=== PATIENT | male | born 1975 | race Caucasian/White ===

== ENCOUNTER 2021-06-27 02:31 | Emergency (ER) | payer SELFPAY ==
[2021-06-27 02:35] VITALS: BP 121/81; PULSE 121; RESP 16; TEMP 36.1; O2SAT 97; BMI 26.6
--- NOTE | 2021-06-27 02:52 | W.ED.SKABFB ---
HPI - Skin/Abscess/Foreign Bdy General: Chief complaint: Skin/Abscess/Foreign Body Stated complaint: Enternal Sist that Burst on Bottom Time Seen by Provider: 06/27/21 02:35 Source: patient Mode of arrival: ambulatory Limitations: no limitations History of Present Illness: HPI narrative: 46-year-old male states that having rectal pain for roughly a week states he originally thought he had an internal hemorrhoid but states he went to the bathroom yesterday felt a pop and had a lot of purulent material believes that he has not rectal abscess. He states he feels like it is on the inside he does not notice anything on the outside. He states he felt improved after the drainage but states that today his pain got much worse and he is able to have a bowel movement and is having difficulty with urination. Rates his pain a 6 out of 10. Denies any vomiting. Associated symptoms: Deny chills or fever(s) Review of Systems Const: Denies: fever(s), chills, body aches or change in appetite Eyes: Denies: blurry vision or eye discomfort ENMT: Denies: throat pain or dental pain Card: Denies: chest pain Resp: Denies: dyspnea GI: Reports: rectal pain : Denies: dysuria Musc: Denies: neck pain or back pain Skin/Breast: Denies: rash Neuro: Denies: headache(s) Psych: Denies: depression Watson/Lymph: Denies: easy bruising All/Imm: Denies: urticaria Physical Exam Const: COMMON NORMALS: no acute distress, patient oriented x3 and healthy appearing HENMT: COMMON NORMALS: normocephalic and atraumatic HEAD & SCALP: normocephalic and atraumatic Eye: COMMON NORMALS: Equal, round and reactive pupils present and EOMs intact bilaterally PUPIL: Yes Equal, round and reactive pupils present Neck/C-Spine: COMMON NORMALS: full ROM and supple Chest: COMMONS NORMALS: normal inspection of the chest and normal palpation of entire chest wall Resp: COMMON NORMALS: normal respiratory effort, No retractions, No use of accessory muscles and clear to auscultation bilaterally AUSCULTATION: clear to auscultation bilaterally Cardio: COMMON NORMALS: regular rate, regular rhythm and No murmurs present (Cardio) RATE: regular rate RHYTHM: regular rhythm GI: COMMON NORMALS: Normal to inspection, nondistended, normoactive bowel sounds present, Soft to palpation, non-tender and no masses PALPATION: Yes Soft to palpation OTHER: No obvious rectal abscess or hemorrhoid Extremity: COMMON NORMALS: normal to inspection and full ROM Neuro: COMMON NORMALS: patient oriented x3, moves all extremities and no focal motor deficits Psych: COMMON NORMALS: mental status grossly normal, Normal thought process present and cooperative THOUGHT PROCESS: Normal thought process present Skin: COMMON NORMALS: no rashes or lesions noted and no wounds GENERAL SKIN EXAM: no rashes or lesions noted Course Vital Signs: Vital signs: Vital Signs Temperature 96.9 F L 06/27/21 02:35 Pulse Rate 121 H 06/27/21 02:35 Respiratory Rate 22 H 06/27/21 03:12 Blood Pressure 121/81 06/27/21 02:35 Pulse Oximetry 97 06/27/21 02:35 MDM - Skin/Abscess/Foreign Bdy MDM Narrative: Medical decision making narrative: Patient presents here with a very small perianal abscess I believe is likely is draining on its own. On exam I do not see any area to be drained and spoke to surgeon Dr. Rm patient is not febrile has a normal white count and will have him placed on oral antibiotics do sitz bath and follow-up with Dr. Narayanan as outpatient in 2 to 3 days. Hospital with the findings of the renal mass with patient instructed him to follow-up as well. I did tell importance that this could be cancer and he needs to follow-up with soon as possible. And for his ED worsening pain or fever draining he is return immediately. Lab Data: Labs: Lab Results 06/27/21 06/27/21 06/27/21 03:20 03:20 03:50 WBC 11.3 10^3/uL H 10 ^3/uL (4.0-10.0) RBC 4.43 10^6/uL 10^6 /uL (4.1-5.3) Hgb 13.8 g/dL g/dL (11.7-16.6) Hct 41.9 % L % (42.0-52.0) MCV 94.6 fl H fl (80-94) MCH 31.2 pg pg (28.0-34.0) MCHC 32.9 g/dL g/dL (30.0-36.0) RDW 12.9 % % (12.1-15.1) Plt Count 244 10^3/cmm 10^3 /cmm (130-400) MPV 9.4 fL fL (7.4-10.4) Neut % (Auto) 73.8 % % Lymph % (Auto) 16.7 % % [place] % (Auto) 8.4 % % Eos % (Auto) 0.3 % % Baso % (Auto) 0.5 % % Neut # (Auto) 8.31 10^3/uL H 10 ^3/uL (1.8-7.7) Lymph # (Auto) 1.9 10^3/uL 10^3/ uL (0.8-4.8) [place] # (Auto) 0.9 10^3/uL 10^3/ uL (0.2-0.9) Eos # (Auto) 0.0 10^3/uL 10^3/ uL (0.0-0.8) Baso # (Auto) 0.1 10^3/uL 10^3/ uL (0.0-0.1) Nucleated RBC % (a uto) 0 % % Nucleated RBCs # 0.0 /100WBC /100W BC Sodium 135 mmol/L L mmol /L (136-145) Potassium 4.0 mmol/L mmol/L (3.5-5.1) Chloride 102 mmol/L mmol/L (98-107) Carbon Dioxide 24 mmol/L mmol/L (22-29) Anion Gap 13.0 (5-19) BUN 13 mg/dL mg/dL (6-20) Creatinine 0.9 mg/dL mg/dL (0.7-1.2) GFR Calculation 90.4 mL/min mL/mi n (90-130) Glucose 111 mg/dL mg/dL (65-115) Calculated Osmolal ity 281 mOsm/kg L mOs m/kg (285-295) Calcium 9.0 mg/dL mg/dL (8.5-10.5) Total Bilirubin 0.2 mg/dL mg/dL (0.15-1.2) AST 11 U/L U/L (0-40) ALT 18 U/L U/L (0-41) Alkaline Phosphata se 57 IU/L IU/L (40-130) Total Protein 6.3 g/dL L g/dL (6.6-8.7) Albumin 3.9 g/dL g/dL (3.5-5.2) Globulin 2.4 g/dL g/dL (1.3-4.6) Lipase 22 U/L U/L (13-60) Urine Color Yellow (Yellow) Urine Appearance Clear (CLEAR) Urine pH 7 (5-7) Ur Specific Gravit y 1.005 (1.005-1.030) Urine Protein Neg (Negative) Urine Glucose (UA) Norm (Normal) Urine Ketones Negative (Negative) Urine Blood 2+ H (Negative) Urine Nitrate Negative (Negative) Urine Bilirubin Neg (Negative) Urine Urobilinogen 1 mg/dL H mg/dL (Negative) Ur Leukocyte Libby ase Negative (Negative) Urine RBC 0-4 /hpf H /hpf (0-2) Urine WBC 0-4 /hpf H /hpf (0-5) Ur Squamous Epith Cells 0-4 /hpf H /hpf (0-5) Amorphous Sediment Not Reportable Urine Bacteria Trace /hpf /hpf (NONE) Imaging Data^: CT Abd/Pel: Attestation: I personally reviewed and interpreted this imaging study as follows: Radiologist's impression: [address] [address] [address] Scan Report Signed with Addenda Patient: Vince Lugo Unit #: [id number] : 1975 Age/Sex: 46 / M ADM Date: 06/27/21 Loc: ER Room/Bed: Attending Dr: Ordering Provider/Ordering MD: Denita Valle MD Date of Service: 06/27/21 Procedure(s): CT abdomen pelvis w con* [id number] Accession Number(s): [id number] Report Number: [id number]/CT abdomen pelvis w con* [id number] This report contains findings that may be critical to patient care. I discussed the critical exam findings by phone with DENITA Crook at 4:21 AM CDT, 06/27/2021. Specifically, we discussed the suspected perianal abscess, as well as the possible renal mass/neoplasm, and nonspecific liver findings. The findings were acknowledged and understood. He was also instructed to review the provided written report for complete details, and description of other non-critical findings. Radiation Dose CTDIVOL = (mGy): DLP = 1990.54 (mGy-cm) Addendum Dictated By: Miguel Pinon MD Addendum Signed By: Miguel Pinon MD Signed Date/Time: 06/27/21 0 427 Addendum Cosigned By: PROCEDURE INFORMATION: Exam: CT Abdomen And Pelvis With Contrast Exam date and time: 06/27/2021 2:54 AM Age: 46 years old Clinical indication: Pain; Other: Shabana rectal abscess; Additional info: R/O shabana rectal abscess TECHNIQUE: Imaging protocol: Computed tomography of the abdomen and pelvis with contrast. Radiation optimization: All CT scans at this facility use at least one of these dose optimization techniques: automated exposure control; mA and/or kV adjustment per patient size (includes targeted exams where dose is matched to clinical indication); or iterative reconstruction. Contrast material: OMNI 300; Contrast volume: 95 ml; Contrast route: INTRAVENOUS (IV); COMPARISON: No relevant prior studies available. RADIATION DOSE METRICS: Total DLP (mGy-cm): 1990.54 FINDINGS: Lungs: The lung bases are clear. Diaphragm: Small hiatal hernia. There may be some mucosal/wall thickening involving the lower esophagus. This is nonspecific, but could represent evidence for esophagitis. Please correlate clinically. Liver: There is fatty infiltration of the liver. There is a very small 3-4 mm low attenuation area in the left lobe of the liver. The appearance is nonspecific, but statistically this most likely represents a small cyst or cavernous hemangioma. Two subtle focal areas of enhancement or relative high attenuation are seen in the right lobe of the liver. 15 mm lesion in the lower right lobe,(axial image number 32, series 2), 10 mm lesion in the upper right lobe,(axial image number 10, series 2). This appearance is nonspecific. These could represent cavernous hemangiomas or areas of focal fatty sparing. Other neoplasm, including metastatic disease is not excluded. If there is clinical concern for other liver mass such as metastatic disease, MRI could be more specific/sensitive. Gallbladder and bile ducts: No definite gallbladder abnormality by CT. No biliary tree dilation. Pancreas: Unremarkable. Spleen: Unremarkable. Adrenal glands: Unremarkable. Kidneys and ureters: Subtle 15 mm fairly well-defined area of poor/decreased enhancement in the lower pole/tip of the left kidney. No adjacent inflammatory changes or perinephric fluid. The etiology is nonspecific, but this does not appear to represent a cyst. A focal area of pyelonephritis could have this appearance, although this could represent a small solid mass/neoplasm, such as renal cell carcinoma. A much smaller 5 mm similar appearing area of low attenuation is seen in the medial lower left kidney. Eventual comparison with any available prior exams will be helpful. Further evaluation/characterization with MRI will be useful to help exclude possible neoplasm/malignancy. No hydronephrosis of either kidney. No visible ureteral calculus. Stomach and bowel: No significant bowel distention. There are no CT findings to strongly suggest diverticulitis. Appendix: The appendix is visualized and appears normal. Intraperitoneal space: No free intraperitoneal air, or ascites. Vasculature: No evidence for abdominal aortic aneurysm. Lymph nodes: A few borderline prominent retroperitoneal/periaortic lymph nodes, a nonspecific appearance. Largest on the left, superior to the left renal vein, measures 14 x 8 mm. The appearance is nonspecific. Followup may be useful to exclude progression, especially if there is concern for metastatic disease. Urinary bladder: No visible calculus in the urinary bladder. No significant bladder wall thickening. Reproductive: Essentially unremarkable for age. Bones/joints: Moderate degenerative disc changes in the lower lumbar spine. The bone removed Soft tissues: Very small 20 x 10 x 15 mm fluid and gas collection in the left perianal region, suspicious for a small abscess, (axial images # [id number], series 2). Please correlate clinically. CT/CT abdomen pelvis w con* [id number] IMPRESSION: 1. 20 x 10 x 15 mm fluid and gas collection in the left perianal region, suspicious for a small abscess. 2. Nonspecific 15 mm lesion in the lower pole of the left kidney, see above details/discussion/recommendation. Small renal cell carcinoma or other neoplasm is not excluded. 3. Nonspecific liver lesions, see above discussion. 4. Borderline prominent retroperitoneal/periaortic lymph nodes, see above. 5. Small hiatal hernia. Possibly some thickening of the lower esophagus, see above discussion. 6. No evidence for appendicitis or diverticulitis. 7. No free air or bowel distention. 8. Other findings discussed above. COMMENTS: Consistent with the [employer]'s Incidental Findings Committee white paper (J Am Gilbert Radiol 2018): Any incidental renal lesion less than 1 cm or classified as too small to characterize, or any incidental cystic renal lesion characterized as simple-appearing, is likely benign. No follow-up imaging is recommended for these lesions per consensus recommendations based on imaging criteria. Radiation Dose CTDIVOL = (mGy): DLP = 1991.54 (mGy-cm) Dictated By: Miguel Pinon MD Signed By: Miguel Pinon MD Signed Date/Time: 06/27/21 0421 DD/ [id number] Discharge Plan Discharge Patient Disposition: Home Clinical Impression: Abscess, perianal, Left renal mass Condition: Stable Prescriptions: New hydrocodone-acetaminophen 5-325 mg tablet 1 tab PO Q6H PRN (Reason: pain) Qty: 14 RF: 0 Bactrim DS 800-160 mg tablet 1 tab PO BID 10 Days Qty: 20 RF: 0 ondansetron 4 mg tablet,disintegrating 4 mg PO Q6H PRN (Reason: nausea and vomiting) Qty: 14 RF: 0 Discharge Orders: Discharge ED (Routine); Ordered 06/27/21 Ordered By: Denita Valle Discharge Diet: Advance as tolerated Discharge Activity: Resume usual activity Patient Instructions: Rectal Abscess (ED), Opioid Safety Coding Level of Care Code ED Editor Book for Chg Fwd Exam Comprehensive
[2021-06-27 03:12] VITALS: RESP 22
[2021-06-27] MEDS: ondansetron 2 mg/ML SDV 2 mL 4 MG IVP (03:12)
[2021-06-27] MEDS: morphine 4 mg/mL SDV 1 mL IVP (03:12)
[2021-06-27] MEDS: sodium chloride 0.9% 1,000 ML 999 ML IV (03:12)
[2021-06-27 03:27] LABS: Basophils # 0.1 10^3/uL (0.0-0.1); Basophils % 0.5 %; Eosinophils % 0.3 %; Hematocrit 41.9 % (42.0-52.0); Hemoglobin 13.8 g/dL (11.7-16.6); Lymphocytes # 1.9 10^3/uL (0.8-4.8); Lymphocytes % 16.7 %; Mean Corpuscular HGB Conc 32.9 g/dL (30.0-36.0); Mean Corpuscular Hemoglobin 31.2 pg (28.0-34.0); Mean Corpuscular Volume 94.6 fl (80-94); Mean Platelet Volume 9.4 fL (7.4-10.4); Monocytes # 0.9 10^3/uL (0.2-0.9); Monocytes % 8.4 %; Neutrophils # 8.31 10^3/uL (1.8-7.7); Neutrophils % 73.8 %; Nucleated Red Blood Cells % 0 %; Platelet Count 244 10^3/cmm (130-400); Red Blood Count 4.43 10^6/uL (4.1-5.3); Red Cell Distribution Width 12.9 % (12.1-15.1); White Blood Count 11.3 10^3/uL (4.0-10.0)
[2021-06-27] MEDS: iohexol 300 mg/mL 100 mL Btl IV (03:28)
[2021-06-27 03:51] LABS: Alanine Aminotransferase 18 U/L (0-41); Albumin Level 3.9 g/dL (3.5-5.2); Alkaline Phosphatase 57 IU/L (40-130); Aspartate Amino Transferase 11 U/L (0-40); Blood Urea Nitrogen 13 mg/dL (6-20); Carbon Dioxide 24 mmol/L (22-29); Chloride 102 mmol/L (98-107); Globulin 2.4 g/dL (1.3-4.6); Glomerular Filtration Rate 90.4 mL/min (90-130); Glucose 111 mg/dL (65-115); Lipase 22 U/L (13-60); Osmolality Calculated 281 mOsm/kg (285-295); Sodium 135 mmol/L (136-145); Total Bilirubin 0.2 mg/dL (0.15-1.2); Total Protein 6.3 g/dL (6.6-8.7)
[2021-06-27 04:04] LABS: Add Urine Microscopic? YES; Bilirubin Urine Neg (Negative); Blood Urine 2+ (Negative); Glucose Urine UA Norm (Normal); Ketones Urine Negative (Negative); Leukocyte Esterase Urine Negative (Negative); Nitrate Urine Negative (Negative); Protein Urine Neg (Negative); Specific Gravity, Urine 1.005 (1.005-1.030); Urine Appearance Clear (CLEAR); Urine Color Yellow (Yellow); Urobilinogen Urine 1 mg/dL (Negative); pH Urine 7 (5-7)
[2021-06-27 04:05] LABS: Add Urine Culture? No; Bacteria Urine TRACE /hpf; RBC Urine 0-4 /hpf (0-2); Squamous Epithelial Cell Urine 0-4 /hpf (0-5); WBC Urine 0-4 /hpf (0-5)
[2021-06-27 04:45] VITALS: BP 119/78; PULSE 87; RESP 18; O2SAT 98
[2021-06-27] MEDS: sulfamethoxazole-trimeth DS 160-800 mg Tablet 1 TAB PO (04:45)
[2021-06-27 05:08] VITALS: BP 134/77; PULSE 88; RESP 20; TEMP 36.9; O2SAT 99
--- NOTE | 2021-06-27 14:17 | DCPLANNER ---
Addendum entered by Shannon Moran 06/27/21 14:19: consumer affairs manager also had message to schedule a follow up appointment for patient with general surgery. consumer affairs manager emailed patients information to Iram Torrez and Lyn at [facility] General Surgery / ENT clinic. Patients information will be printed and reviewed. Clinic will call patient with appointment information. Original Note: consumer affairs manager had message to schedule a follow up appointment for patient with Dr. Vera. consumer affairs manager called the office of Dr. Vera, spoke with Pita, gave clinic patients information. consumer affairs manager was told that patients information would be printed and reviewed. Clinic will call patient with appointment information.
--- NOTE | 2021-06-30 15:45 | DCPLANNER ---
Patient has a follow up appointment scheduled for Sunday, July 06, 2021 at 4:[address] Vera. Clinic will call patient with appointment information.
--- NOTE | 2021-07-06 07:41 | DCPLANNER ---
Patient had an appointment scheduled for 07.04.[address] Ontiveros at [facility] General Surgery / ENT - patient did attend appointment.
--- NOTE | 2021-09-18 15:59 | DCPLANNER ---
Patient had a follow up appointment scheduled with Dr. Vera - patient did attend appointment. Patient had a follow up appointment scheduled with general surgery - patient did attend appointment.
== END 2021-06-27 05:00 | disposition home or self-care (01) ==
PROVIDERS: Emergency Provider Emergency Medicine
DX: K61.0 Anal abscess (principal); N28.81 Hypertrophy of kidney
CPT/HCPCS: 74177; 80053; 81001; 83690; 85025; 96361; 96374; 96375; 99284; J2270; J2405; J7030; Q9967

== ENCOUNTER 2021-08-17 12:12 | Outpatient (CLI) | payer SELFPAY ==
--- NOTE | 2021-08-17 12:45 | US_ITS ---
WS: [id number] RENAL ULTRASOUND HISTORY: RENAL MASS COMPARISON: CT 06/27/2021 TECHNIQUE: 2-D and color Doppler imaging of the kidney submitted. Right kidney: 10.3 cm x 5.3 cm x 5.4 cm. Normal echogenicity with no hydronephrosis or mass. Left kidney: 12.0 cm x 4.1 cm x 3.8 cm. Normal size kidney. The very small cortical hypodensity seen on the recent CT is not seen by ultrasou nd. No hydronephrosis. Aorta: Normal. Urinary Bladder: Normally distended urinary bladder. Slightly enlarged prostate at 3.6 x 2.5 x 3.5 cm . US/US renal BI* [id number] IMPRESSION: 1. Cortical mass lower pole LEFT kidney is not identified by ultrasound. Due t o the small size of the mass this is not unusual. This mass would be very diffi cult to visualize by ultrasound. Recommend 6 month follow-up renal mass CT prot ocol to evaluate for increasing size of the renal mass. 2. No hydronephrosis.
== END 2021-08-17 12:13 | disposition home or self-care (01) ==
LOC: RAD 12:14
PROVIDERS: PCP Urology; Visit Provider Urology
DX: N28.89 Other specified disorders of kidney and ureter (principal)
CPT/HCPCS: 76770; 81003

== ENCOUNTER 2021-12-20 10:48 | Outpatient (CLI) | payer OTHER, SELFPAY ==
--- NOTE | 2021-12-20 11:11 | XR_ITS ---
WS: [id number] Thoracic spine, AP and lateral views, 12/20/2021 Clinical Data: THORACIC LUMBAR SPINE DDD/OSTEOARTHRITIS Comparison: None. Findings: No compression fractures are seen. The disc heights are normal. There is a slight levoscoliosis. The paravertebral regions are normal. There is mild anterior osteoph ytic spurring from T4 through T12. XR/XR thoracic spine 2V [id number] Impression: Minimal osteoarthritic spurring with a mild levoscoliosis.
--- NOTE | 2021-12-20 11:11 | XR_ITS ---
WS: [id number] Lumbar spine, 3 views, 12/20/2021 Clinical Data: THORACIC LUMBAR SPINE DDD/OSTEOARTHRITIS Comparison: None. Findings: No compression fractures or subluxation is seen. There is disc narrowing at L4-L5 with an anterior easley perior osteophyte of L5. The transverse processes and SI joints are normal. There is calcification of the abdominal aorta with no aneurysm. XR/XR lumbar spine 2-3V* [id number] Impression: Degenerative disc narrowing at L4-L5 with small spur of L5.
== END 2021-12-20 10:49 | disposition home or self-care (01) ==
LOC: RAD 10:55
PROVIDERS: PCP Urology; Visit Provider Dermatology
DX: M51.34 Other intervertebral disc degeneration, thoracic region (principal); M51.36 Other intervertebral disc degeneration, lumbar region; M47.896 Other spondylosis, lumbar region
CPT/HCPCS: 72070; 72100

== ENCOUNTER → 2024-03-19 10:25 | Outpatient (BNVA) | payer SELFPAY | PROVIDERS: PCP Nurse Practitioner Family; Visit Provider Nurse Practitioner Family | DX: I10 Essential (primary) hypertension (principal); Z12.5 Encounter for screening for malignant neoplasm of prostate | CPT/HCPCS: 80053; 80061; 84443; 85025; G0103 ==